=== PATIENT | female | born 1965 | race Caucasian/White ===

== ENCOUNTER → 2016-04-14 | Outpatient (CLI) | payer BC, OTHER ==
[~2016-04-14] MED LIST: /PANT40TA PO; ALDA25TA2 PO; LACT10SO29 PO; LASI20TA PO; MICR10CA PO; PHYT5TA PO; POTA10TA16 PO; POTA20TA PO; PROP10TA56 PO; PROP10TAB PO; RANI15TA PO; SPIR25TA2 PO; VITAMIN K PO; ZANT150T PO
--- NOTE | 2016-04-14 08:57 | REP ---
Right upper quadrant ultrasound: History: Cirrhosis. Findings: The gallbladder is normal in size with a thin wall. There is an 8 mm echogenic structure in the neck of the gallbladder which does not demonstrate acoustic shadowing. This may be a small stone or polyp. A stone was felt to be present in this location on prior sonography October 01, 2015. CT study from November 09, 2014 showed a calcified gallstone in the neck of the gallbladder. Liver texture is somewhat coarse as before. Common bile duct is normal measuring 0.5 cm in greatest diameter. There is a 0.7 cm cyst in the right lobe of the liver. No other focal liver lesion is seen. No pancreatic abnormality is observed. There is no evidence of ascites or right renal abnormality. The right kidney measures 11.1 x 4.7 x 4.1 cm. Impression: 1. Small cyst right lobe of the liver. 2. Coarse liver texture as before. 3. 8 mm stone (versus less likely polyp) in the neck of the gallbladder. Signed by Evangelista Joseph MD 04/14/2016 02:32 P
== END ==
LOC: M RAD 07:52
PROVIDERS: ATTEND Internal Medicine
DX: K76.89 Other specified diseases of liver (principal); K82.9 Disease of gallbladder, unspecified

== ENCOUNTER → 2016-12-11 | Outpatient (CLI) | payer OTHER, BC ==
[2016-12-11 12:03] LABS: BASO # 0.1 10^3/uL (0.0-0.2); BASO % 1.2 % (0.0-1.0); EOS # 0.1 10^3/uL (0.0-0.50); EOS % 1.9 % (0.0-3.0); IMMATURE GRANULOCYTE % 0.2 % (0-0); LYMPH # 1.3 10^3/uL (1.5-4.5); LYMPH % 28.9 % (24.0-44.0); MEAN CORPUSCULAR HEMOGLOBIN 25.8 pg (27.0-33.0); MEAN CORPUSCULAR HGB CONC 31.7 g/dl (32.0-36.5); MEAN CORPUSCULAR VOLUME 81.2 fl (80.0-96.0); MONO # 0.3 10^3/uL (0.0-0.8); MONO % 7.6 % (0.0-5.0); NEUTROPHILS # 2.6 10^3/uL (1.8-7.7); NEUTROPHILS % 60.2 % (36.0-66.0); PLATELET COUNT, AUTOMATED 178 10^3/uL (150-450); RED CELL DISTRIBUTION WIDTH 14.1 % (11.5-14.5); WHITE BLOOD COUNT 4.3 10^3/uL (4.0-10.0)
[2016-12-11 12:10] LABS: ADD MANUAL DIFFER NO; DIFF SLIDE NUMBER 198
[2016-12-11 12:11] LABS: INR 0.97
[2016-12-11 13:05] LABS: ALBUMIN 3.8 GM/DL (3.2-5.2); ALBUMIN/GLOBULIN RATIO 0.86 (1.00-1.93); ALKALINE PHOSPHATASE 82 U/L (45-117); ALT/SGPT 20 U/L (12-78); ANION GAP 8 MEQ/L (8-16); AST/SGOT 23 U/L (15-37); BILIRUBIN,DIRECT 0.2 MG/DL (0.0-0.2); BILIRUBIN,TOTAL 0.7 MG/DL (0.2-1.0); BLOOD UREA NITROGEN 7 MG/DL (7-18); CALCIUM LEVEL 9.3 MG/DL (8.5-10.1); CARBON DIOXIDE LEVEL 26 MEQ/L (21-32); CHLORIDE LEVEL 105 MEQ/L (98-107); CREATININE FOR GFR 0.96 MG/DL (0.55-1.02); GLOMERULAR FILTRATION RATE > 60.0 (>51); GLUCOSE, FASTING 83 MG/DL (70-105); POTASSIUM SERUM 4.5 MEQ/L (3.5-5.1); SODIUM LEVEL 139 MEQ/L (136-145); TOTAL PROTEIN 8.2 GM/DL (6.4-8.2)
== END ==
LOC: M WUC 10:40
PROVIDERS: ATTEND Internal Medicine
DX: K70.30 Alcoholic cirrhosis of liver without ascites (principal)

== ENCOUNTER → 2017-02-23 | Outpatient (CLI) | payer BC, OTHER ==
--- NOTE | 2017-02-23 11:48 | REP ---
RIGHT UPPER QUADRANT SONOGRAPHY: HISTORY: Cirrhosis. Comparison study April 14, 2016. TODAY'S SONOGRAPHIC FINDINGS: Scanning through right upper quadrant of the abdomen demonstrates a non-shadowing 5 mm focus near the neck of the gallbladder likely a polyp. No stone is seen. No pericholecystic fluid or gallbladder wall thickening seen. Common bile duct is normal measuring 0.3 cm in diameter. Coarse liver texture is again seen. There is a 0.8 cm cyst in the right lobe again noted. No focal liver mass lesion is seen otherwise. There is no evidence of ascites or right renal abnormality. The right kidney measures 11.8 x 5.3 x 3.6 cm. IMPRESSION: Coarse liver texture. One small hepatic cyst. Presumed 5 mm polyp in the neck of the gallbladder again noted. Signed by Evangelista Joseph MD 02/23/2017 02:24 P
== END ==
LOC: M LAB 08:06
PROVIDERS: ATTEND Internal Medicine
DX: K76.89 Other specified diseases of liver (principal); K82.4 Cholesterolosis of gallbladder

== ENCOUNTER 2017-05-29 06:16 | Emergency (ER) | payer BC, OTHER ==
[2017-05-29] MEDS: NS 1,000 ML IV (07:15)
[2017-05-29 08:24] LABS: BASO % 0.2 % (0.0-1.0); HEMATOCRIT 38.6 % (36.0-47.0); HEMOGLOBIN 11.9 g/dl (12.0-16.0); IMMATURE GRANULOCYTE % 0.6 % (0-3.0); LYMPH # 0.3 10^3/uL (1.5-4.5); MEAN CORPUSCULAR HEMOGLOBIN 24.2 pg (27.0-33.0); MEAN CORPUSCULAR HGB CONC 30.8 g/dl (32.0-36.5); MEAN CORPUSCULAR VOLUME 78.6 fl (80.0-96.0); MONO # 0.7 10^3/uL (0.0-0.8); MONO % 6.1 % (0.0-5.0); NEUTROPHILS # 9.6 10^3/uL (1.8-7.7); NEUTROPHILS % 90.7 % (36.0-66.0); RED BLOOD COUNT 4.91 10^6/uL (4.00-5.40); RED CELL DISTRIBUTION WIDTH 14.5 % (11.5-14.5); WHITE BLOOD COUNT 10.6 10^3/uL (4.0-10.0)
[2017-05-29] MEDS: MORPHINE 4 MG/ML 1ML VIAL (J2270) IV (08:28)
[2017-05-29] MEDS: ONDANSETRON 4MG/2ML VIAL (J2405) IV (08:28)
[2017-05-29 09:01] LABS: CONTROL LINE HCG INT CTR LINE PRESENT; HCG, SERUM QUALITATIVE NEGATIVE (NEGATIVE)
[2017-05-29 09:07] LABS: ALBUMIN 3.7 GM/DL (3.2-5.2); ALBUMIN/GLOBULIN RATIO 0.88 (1.00-1.93); ALKALINE PHOSPHATASE 194 U/L (45-117); ALT/SGPT 216 U/L (12-78); ANION GAP 10 MEQ/L (8-16); AST/SGOT 317 U/L (7-37); BILIRUBIN,TOTAL 3.7 MG/DL (0.2-1.0); BLOOD UREA NITROGEN 13 MG/DL (7-18); CALCIUM LEVEL 8.6 MG/DL (8.5-10.1); CARBON DIOXIDE LEVEL 24 MEQ/L (21-32); CHLORIDE LEVEL 106 MEQ/L (98-107); GLOMERULAR FILTRATION RATE > 60.0 (>51); GLUCOSE, FASTING 111 MG/DL (70-100); POTASSIUM SERUM 3.8 MEQ/L (3.5-5.1); SODIUM LEVEL 140 MEQ/L (136-145); TOTAL PROTEIN 7.9 GM/DL (6.4-8.2)
[2017-05-29 09:18] LABS: POSITIVE DIFF POS FLAG
[2017-05-29 09:19] LABS: POS COUNT POS FLAG
[2017-05-29 09:22] LABS: LYMPH % 2.4 % (24.0-44.0)
[2017-05-29 09:47] LABS: AMYLASE 4582 U/L (25-115)
[2017-05-29 09:57] LABS: LIPASE 33761 U/L (73-393)
== END 2017-05-29 16:00 | disposition short-term general hospital (02) ==
LOC: M ED 06:16
DX: R10.10 Upper abdominal pain, unspecified (principal); K74.60 Unspecified cirrhosis of liver; R11.2 Nausea with vomiting, unspecified; I10 Essential (primary) hypertension; K21.9 Gastro-esophageal reflux disease without esophagitis; B19.20 Unspecified viral hepatitis C without hepatic coma; Z87.19 Personal history of other diseases of the digestive system; Z87.891 Personal history of nicotine dependence; Z79.899 Other long term (current) drug therapy
CPT/HCPCS: J2270

== ENCOUNTER → 2018-05-09 | Outpatient (CLI) | payer BC, OTHER ==
[~2018-05-09] MED LIST changes: +PANT40TA3 PO; +SPIR-10 PO; -SPIR25TA2 PO
--- NOTE | 2018-05-09 20:24 | REP ---
Clinical: Cirrhosis. Comparison: 05/29/2017 Technique: Real time zuniga scale ultrasound examination using curved array transducer. Findings: Evidence of prior cholecystectomy. Common bile duct measures 8.3 mm diameter. The liver demonstrates heterogeneous echotexture consistent with cirrhosis and a recanalized umbilical vein is identified. Main portal vein measures 12.5 mm diameter on current examination. Right hepatic cyst measures 6.7 mm maximal diameter and appears stable. The pancreas is normal in appearance. 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 No ascites. Impression: 1. Continued evidence for cirrhosis. No focal hepatic lesion identified. Benign stable hepatic cyst measuring 6.7 mm. 2. Right kidney with suggestions for duplicated collecting system including pelviectasis of the the lower pole moiety. Electronically Signed by Stanley Hansen MD 05/09/2018 08:15 P
== END ==
LOC: M RAD 08:54
PROVIDERS: ATTEND Internal Medicine
DX: K70.30 Alcoholic cirrhosis of liver without ascites (principal); K76.89 Other specified diseases of liver

== ENCOUNTER → 2018-05-09 | Outpatient (CLI) | payer BC, OTHER | LOC: M LAB 09:41 | PROVIDERS: ATTEND Internal Medicine | DX: K70.30 Alcoholic cirrhosis of liver without ascites (principal) ==

== ENCOUNTER → 2018-11-18 | Outpatient (CLI) | payer BC, OTHER ==
[~2018-11-18] MED LIST changes: -/PANT40TA PO; +PROT1TAB2 PO
[2018-11-18 10:34] LABS: HEMATOCRIT 34.8 % (36.0-47.0); HEMOGLOBIN 9.8 g/dl (12.0-15.5); MEAN CORPUSCULAR HEMOGLOBIN 20.6 pg (27.0-33.0); MEAN CORPUSCULAR HGB CONC 28.2 g/dl (32.0-36.5); MEAN CORPUSCULAR VOLUME 73.3 fl (80.0-96.0); PLATELET COUNT, AUTOMATED 175 10^3/uL (150-450); RED BLOOD COUNT 4.75 10^6/uL (4.00-5.40); WHITE BLOOD COUNT 4.2 10^3/uL (4.0-10.0)
[2018-11-18 10:44] LABS: PROTHROMBIN TIME 12.9 SECONDS (11.8-14.0)
[2018-11-18 10:45] LABS: PARTIAL THROMBOPLASTIN TIME 30.2 SECONDS (25.0-38.4)
[2018-11-18 11:10] LABS: BILIRUBIN,DIRECT 0.1 MG/DL (0.0-0.2); BILIRUBIN,TOTAL 0.4 MG/DL (0.2-1.0); CALCIUM LEVEL 9.5 MG/DL (8.5-10.1); CREATININE FOR GFR 1.06 MG/DL (0.55-1.30); GLOMERULAR FILTRATION RATE 57.5 (>51); POTASSIUM SERUM 4.2 MEQ/L (3.5-5.1); TOTAL PROTEIN 8.2 GM/DL (6.4-8.2)
== END ==
LOC: M LAB 10:00
PROVIDERS: ATTEND Physician Assistant Surgical
DX: K70.30 Alcoholic cirrhosis of liver without ascites (principal); K76.6 Portal hypertension; I85.00 Esophageal varices without bleeding

== ENCOUNTER → 2018-12-08 | Outpatient (CLI) | payer BC, OTHER ==
--- NOTE | 2018-12-08 11:23 | REP ---
REASON: Cirrhosis. COMPARISON: 05/09/2018. Once again, the patient is status post cholecystectomy. There is a micronodular surface to the hepatic edge essentially unchanged from the prior exam. There is common bile duct dilatation today measuring 8 mm, previously 3.2 mm. There is no evidence of intrahepatic ductal dilatation. Once again, there is evidence of recannulation of the umbilical vein status quo. There is a tiny 7 mm sized hepatic cyst status quo. The imaged portion of the pancreas is within normal limits. The imaged portion of the right kidney is unchanged from the prior exam. IMPRESSION: 1. Evidence of hepatic cirrhosis status quo with findings as described above. 2. Evidence of common bile duct dilatation representing a change from the prior exam. 3. Other findings as described above. Electronically Signed by Vicente Smith DO 12/08/2018 02:34 P
== END ==
LOC: M RAD 07:38
PROVIDERS: ATTEND Internal Medicine
DX: K70.30 Alcoholic cirrhosis of liver without ascites (principal)

== ENCOUNTER → 2018-12-22 | Outpatient (CLI) | payer BC, OTHER ==
[~2018-12-22] MED LIST changes: +E-Z-PAQUE 96% w/w SUSP 176GM BTL As Ordered ONE
--- NOTE | 2018-12-22 18:28 | REP ---
Examination Requested: SBFT Reason For Exam: Anemia Small Bowel Follow Through The procedure was performed by RIMA Galdamez, under the direct supervision of Dr. Joseph. The images were reviewed with Dr. Joseph. The staff counselor film shows no organomegaly or pathological masses. The intestinal gas pattern appears normal. The barium was administered and the barium column was followed through the small bowel to the level of the terminal ileum. Small bowel transit time was approximately 140 minutes. During fluoroscopy gentle palpation shows all loops are freely mobile and pliable. There are no fixed or angulated loops. There is a diverticulum of the descending duodenum measuring approximately 2 cm. The small bowel mucosal pattern is normal in course and caliber. There is no transition to suggest a partial small-bowel obstruction. Spot filming of the terminal ileum shows it to be unremarkable. Impression: 1. Descending duodenal diverticulum as described above, otherwise unremarkable small bowel follow-through 0.3 minutes of fluoroscopy time was utilized for this procedure. Some fluoroscopic images are performed with last image hold technology. These images require no additional radiation. Reviewed by RIMA Hui 12/22/2018 04:30 P Electronically Signed by Evangelista Joseph MD 12/22/2018 06:17 P
== END ==
LOC: M RAD 07:59
PROVIDERS: ATTEND Internal Medicine
DX: K57.10 Diverticulosis of small intestine without perforation or abscess without bleeding (principal); D50.9 Iron deficiency anemia, unspecified

== ENCOUNTER → 2019-02-10 | Outpatient (REF) | payer OTHER ==
[~2019-02-10] MED LIST changes: -E-Z-PAQUE 96% w/w SUSP 176GM BTL As Ordered ONE
== END ==
LOC: M LAB REF 16:19
PROVIDERS: ATTEND Registered Nurse
DX: D64.9 Anemia, unspecified (principal)

== ENCOUNTER → 2019-04-21 | Outpatient (CLI) | payer BC, OTHER ==
[2019-04-21 11:28] LABS: HEMATOCRIT 41.2 % (36.0-47.0); HEMOGLOBIN 13.3 g/dl (12.0-15.5); MEAN CORPUSCULAR HEMOGLOBIN 28.2 pg (27.0-33.0); MEAN CORPUSCULAR HGB CONC 32.3 g/dl (32.0-36.5); MEAN CORPUSCULAR VOLUME 87.3 fl (80.0-96.0); PLATELET COUNT, AUTOMATED 185 10^3/uL (150-450); RED BLOOD COUNT 4.72 10^6/uL (4.00-5.40); WHITE BLOOD COUNT 4.5 10^3/uL (4.0-10.0)
[2019-04-21 11:46] LABS: INR 1.13; PROTHROMBIN TIME 14.3 SECONDS (11.8-14.0)
[2019-04-21 11:47] LABS: PARTIAL THROMBOPLASTIN TIME 31.3 SECONDS (25.0-38.4)
[2019-04-21 11:57] LABS: ALT/SGPT 24 U/L (12-78); BILIRUBIN,DIRECT 0.2 MG/DL (0.0-0.2); BILIRUBIN,TOTAL 0.7 MG/DL (0.2-1.0); BLOOD UREA NITROGEN 10 MG/DL (7-18); CALCIUM LEVEL 8.9 MG/DL (8.5-10.1); CARBON DIOXIDE LEVEL 28 MEQ/L (21-32); CHLORIDE LEVEL 104 MEQ/L (98-107); FERRITIN 34 NG/ML (8-252); GLOMERULAR FILTRATION RATE > 60.0 (>51); GLUCOSE, FASTING 74 MG/DL (70-100); IRON (FE) 177 UG/DL (50-170); PERCENT SATURATION 56.7 % (13.2-45.0); SODIUM LEVEL 140 MEQ/L (136-145); TOTAL IRON BINDING CAPACITY 312 UG/DL (250-450); TOTAL PROTEIN 7.8 GM/DL (6.4-8.2)
== END ==
LOC: M LAB 09:54
PROVIDERS: ATTEND Physician Assistant Surgical
DX: K70.30 Alcoholic cirrhosis of liver without ascites (principal); D64.9 Anemia, unspecified

== ENCOUNTER → 2019-05-05 | Outpatient (CLI) | payer BC, OTHER ==
--- NOTE | 2019-05-05 09:34 | REP ---
Abdominal right upper quadrant ultrasound in patient with known cirrhosis: Comparison is 12/08/2018. The the gallbladder is surgically absent. There is no intrahepatic or extrahepatic biliary duct dilatation. The common biliary duct measures 4.4 mm in diameter. The hepatic echotexture is diffusely coarsened compatible with cirrhosis. There are no hepatic masses. No hepatic cysts are identified on the study today. The main portal vein measures 14 mm in diameter, slightly dilated. The flow in the portal vein is patent O P fill, toward the liver. On the prior study. The umbilical vein was recanalized. This is not identified on the study today, however, this study today is limited because of bowel gas obscuration. The pancreas is obscured by bowel gas. The right kidney is normal size measuring 10.2 x 3.9 x 3.9 cm. There is cortical thinning. There is a 5 mm round echogenic focus in the upper pole, hyperdense cyst versus solid nodule. There is no right upper quadrant ascites. Impression: Diffusely coarsened hepatic echotexture compatible with cirrhosis. There are no hepatic masses. No hepatic cysts are identified on the study today. The main portal vein is mildly dilated. The flow in the portal vein is toward the liver. Previously the umbilical vein was recanalized. This is not appreciated today, however, the study is limited because of bowel gas obscuration. There is a 5 mm echogenic focus in the right renal upper pole, hyperdense cyst versus solid nodule versus calculus. The pancreas is obscured by bowel gas. The gallbladder is surgically absent. There is no biliary duct dilatation. There is no ascites. Electronically Signed by Abdullahi Tate MD 05/05/2019 09:26 A
== END ==
LOC: M RAD 07:56
PROVIDERS: ATTEND Physician Assistant Surgical
DX: K70.30 Alcoholic cirrhosis of liver without ascites (principal); N28.89 Other specified disorders of kidney and ureter

== ENCOUNTER → 2019-05-17 | Outpatient (CLI) | payer BC, OTHER ==
--- NOTE | 2019-05-17 11:44 | REPMRS ---
Patient History The patient states she has not had a clinical breast exam in over a year. No known family history of cancer. Digital Woman Screen Mammo: May 17, 2019 - Exam #: [id number] Bilateral CC and MLO view(s) were taken. Technologist: Mili Gaspar, Technologist Prior study comparison: November 15, 2014, bilateral digital woman screen mammo, performed at [facility]. September 22, 2013, bilateral digital woman screen mammo, performed at [facility]. September 16, 2012, bilateral digital woman screen mammo, performed at [facility]. FINDINGS: The breast tissue is heterogeneously dense. This may lower the sensitivity of mammography. There are four nodular opacities in the left mid breast two laterally and two medially. These merit further evaluation as the do not appear to have been present previously. They may be breast cysts. There are nodular opacities on the prior studies which have regressed. There is a moderate amount of heterogeneously dense fibroglandular tissue which is fairly symmetric. There is no other interval development of dominant mass, architectural distortion, or grouped microcalcification typical of malignancy. There has been no other change in the appearance of the mammogram from the prior studies. 3-D tomosynthesis shows no additional findings. Assessment: BI-RADS/ACR category 0 mammogram, Incomplete: Need additional imaging evaluation and/or prior mammograms for comparison. Recommendation Ultrasound and special view mammogram of the left breast. This patient's Lifetime Breast Cancer RIsk is estimated at 10.9 %. This mammogram was interpreted with the aid of an FDA-approved computer-aided dectection system. Electronically Signed By: Syed Joseph MD 05/17/19 [id number]
== END ==
LOC: M WHC 09:27
PROVIDERS: ATTEND Nurse Practitioner Women's Health
DX: Z12.31 Encounter for screening mammogram for malignant neoplasm of breast (principal)

== ENCOUNTER → 2019-05-17 | Outpatient (REF) | payer OTHER | LOC: M SFHCWAGY 13:42 | PROVIDERS: ATTEND Nurse Practitioner Women's Health | DX: Z12.4 Encounter for screening for malignant neoplasm of cervix (principal); R87.619 Unspecified abnormal cytological findings in specimens from cervix uteri | CPT/HCPCS: 87624; G0123 ==

== ENCOUNTER → 2019-06-22 | Outpatient (REF) | payer OTHER | LOC: M LAB REF 12:19 | PROVIDERS: ATTEND Registered Nurse | DX: N39.0 Urinary tract infection, site not specified (principal) ==

== ENCOUNTER → 2019-08-11 | Outpatient (REF) | payer OTHER ==
[~2019-08-11] MED LIST changes: -LACT10SO29 PO; +LACT20EL PO
== END ==
LOC: M LAB REF 17:16
PROVIDERS: ATTEND Registered Nurse
DX: D64.9 Anemia, unspecified (principal)

== ENCOUNTER → 2019-11-06 | Outpatient (CLI) | payer BC, OTHER ==
[~2019-11-06] MED LIST changes: +PANT40TA29 PO; -PANT40TA3 PO
--- NOTE | 2019-12-04 08:01 | REP ---
LIVER ULTRASOUND CLINICAL: Cirrhosis. TECHNIQUE: Real-time zuniga scale and color Doppler evaluation using curved array transducer. FINDINGS: Liver again demonstrates coarsened echotexture consistent with cirrhosis. No focal hepatic mass lesion is identified. No obvious patent umbilical vein noted. The pancreas is incompletely evaluated due to interposed bowel gas. Evidence for prior cholecystectomy. No biliary ductal dilatation is appreciated and the common bile duct measures 3.9 mm in diameter. The right kidney measures 11.1 x 4.5 x 4.3 cm without hydronephrosis and demonstrates increased central sinus fat consistent with chronic medical renal disease. No ascites in the visualized right upper quadrant. IMPRESSION: Continued evidence for cirrhosis. No obvious focal hepatic lesion identified. MTDD
== END ==
LOC: M RAD 09:02
PROVIDERS: ATTEND Physician Assistant Surgical
DX: K70.30 Alcoholic cirrhosis of liver without ascites (principal)

== ENCOUNTER → 2020-04-05 | Outpatient (CLI) | payer BC, OTHER ==
[2020-04-05 08:22] LABS: HEMATOCRIT 45.9 % (36.0-47.0); HEMOGLOBIN 14.5 g/dl (12.0-15.5); MEAN CORPUSCULAR HEMOGLOBIN 28.2 pg (27.0-33.0); MEAN CORPUSCULAR HGB CONC 31.6 g/dl (32.0-36.5); MEAN CORPUSCULAR VOLUME 89.3 fl (80.0-96.0); PLATELET COUNT, AUTOMATED 154 10^3/uL (150-450); RED BLOOD COUNT 5.14 10^6/uL (4.00-5.40); WHITE BLOOD COUNT 4.1 10^3/uL (4.0-10.0)
[2020-04-05 08:43] LABS: INR 1.05; PARTIAL THROMBOPLASTIN TIME 31.4 SECONDS (24.2-38.5); PROTHROMBIN TIME 13.9 SECONDS (12.5-14.3)
--- NOTE | 2020-04-05 08:43 | REP ---
INDICATION: CIRRHOSIS- LABS FIRST COMPARISON: 11/06/2019 TECHNIQUE: Real time zuniga scale ultrasound examination using curved array transducer. FINDINGS: Liver measures approximately 16 cm in craniocaudal length and demonstrates coarsened echotexture suggesting hepatocellular disease. No focal hepatic lesion identified. Pancreas is normal. Evidence for prior cholecystectomy. Common bile duct measures 4 mm diameter. The right kidney measures 10.3 x 4.9 x 3.4 cm with suggestion for partial duplication but no hydronephrosis. No ascites IMPRESSION: Hepatocellular disease consistent with cirrhosis. No focal hepatic lesion. <Electronically signed by Stanley Hansen > 04/05/20 [id number]
[2020-04-05 08:53] LABS: BLOOD UREA NITROGEN 7 MG/DL (7-18); CALCIUM LEVEL 9.2 MG/DL (8.5-10.1); CARBON DIOXIDE LEVEL 29 MEQ/L (21-32); CHLORIDE LEVEL 105 MEQ/L (98-107); CREATININE FOR GFR 0.95 MG/DL (0.55-1.30); GLOMERULAR FILTRATION RATE > 60.0 (>51); GLUCOSE, FASTING 89 MG/DL (70-100); POTASSIUM SERUM 4.2 MEQ/L (3.5-5.1); SODIUM LEVEL 142 MEQ/L (136-145)
[2020-04-08 14:10] LABS: ALT/SGPT 25 U/L (12-78); BILIRUBIN,DIRECT 0.2 MG/DL (0.0-0.2); BILIRUBIN,TOTAL 0.7 MG/DL (0.2-1.0); TOTAL PROTEIN 7.9 GM/DL (6.4-8.2)
== END ==
LOC: M RAD 07:43
PROVIDERS: ATTEND Physician Assistant Surgical
DX: K70.30 Alcoholic cirrhosis of liver without ascites (principal); D64.9 Anemia, unspecified; I85.00 Esophageal varices without bleeding; K21.9 Gastro-esophageal reflux disease without esophagitis

== ENCOUNTER → 2020-10-28 | Outpatient (CLI) | payer BC, OTHER ==
[2020-10-28 09:34] LABS: HEMATOCRIT 44.3 % (36.0-47.0); HEMOGLOBIN 14.6 g/dl (12.0-15.5); MEAN CORPUSCULAR HEMOGLOBIN 28.4 pg (27.0-33.0); MEAN CORPUSCULAR VOLUME 86.2 fl (80.0-96.0); PLATELET COUNT, AUTOMATED 154 10^3/uL (150-450); RED BLOOD COUNT 5.14 10^6/uL (4.00-5.40); WHITE BLOOD COUNT 4.2 10^3/uL (4.0-10.0)
[2020-10-28 09:48] LABS: INR 1.05; PARTIAL THROMBOPLASTIN TIME 29.4 SECONDS (25.9-37.0); PROTHROMBIN TIME 14.1 SECONDS (12.7-14.5)
--- NOTE | 2020-10-28 09:49 | REP ---
INDICATION: CIRRHOSIS *LABS 1ST, US 2ND* COMPARISON: None. TECHNIQUE: Real time zuniga scale ultrasound examination using curved array transducer. FINDINGS: Liver demonstrates mild coarsened echotexture without focal hepatic lesion identified and no evidence for cardiomegaly. Pancreas is incompletely evaluated due to interposed bowel gas. The gallbladder is surgically absent. No biliary ductal dilatation is appreciated and the common bile duct measures 3.7 mm diameter. Right kidney is normal in reniform shape without hydronephrosis and measures 10.7 x 5.6 x 4.3 cm with possible 2.0 cm midpole cyst not visualized on prior examination. No ascites in the visualized right upper quadrant. IMPRESSION: Coarsened hepatic echotexture without focal hepatic lesion. Possible 2 cm right renal cyst. Consider pre and postcontrast CT of the abdomen for further investigation. <Electronically signed by Stanley Hansen > 10/28/20 [id number]
[2020-10-28 09:56] LABS: ALBUMIN 3.9 GM/DL (3.2-5.2); ALT/SGPT 31 U/L (12-78); BILIRUBIN,DIRECT 0.2 MG/DL (0.0-0.2); BILIRUBIN,TOTAL 0.7 MG/DL (0.2-1.0); BLOOD UREA NITROGEN 9 MG/DL (7-18); CALCIUM LEVEL 9.5 MG/DL (8.5-10.1); CARBON DIOXIDE LEVEL 26 MEQ/L (21-32); CHLORIDE LEVEL 108 MEQ/L (98-107); CREATININE FOR GFR 0.96 MG/DL (0.55-1.30); GLOMERULAR FILTRATION RATE > 60.0 (>51); GLUCOSE, FASTING 87 MG/DL (70-100); POTASSIUM SERUM 4.6 MEQ/L (3.5-5.1); SODIUM LEVEL 140 MEQ/L (136-145); TOTAL PROTEIN 8.1 GM/DL (6.4-8.2)
== END ==
LOC: M RAD 08:44
PROVIDERS: ATTEND Physician Assistant Surgical
DX: K70.30 Alcoholic cirrhosis of liver without ascites (principal); I85.00 Esophageal varices without bleeding; K21.9 Gastro-esophageal reflux disease without esophagitis

== ENCOUNTER → 2021-04-14 | Outpatient (CLI) | payer BC, OTHER ==
[~2021-04-14] MED LIST changes: +POTA-149 PO; -POTA10TA16 PO
[2021-04-14 09:04] LABS: HEMATOCRIT 40.5 % (36.0-47.0); HEMOGLOBIN 13.1 g/dl (12.0-15.5); MEAN CORPUSCULAR HEMOGLOBIN 27.8 pg (27.0-33.0); MEAN CORPUSCULAR HGB CONC 32.3 g/dl (32.0-36.5); PLATELET COUNT, AUTOMATED 123 10^3/uL (150-450); RED BLOOD COUNT 4.71 10^6/uL (4.00-5.40); WHITE BLOOD COUNT 2.9 10^3/uL (4.0-10.0)
[2021-04-14 09:17] LABS: INR 1.08; PROTHROMBIN TIME 14.4 SECONDS (12.7-14.5)
[2021-04-14 09:18] LABS: PARTIAL THROMBOPLASTIN TIME 30.9 SECONDS (25.9-37.0)
[2021-04-14 09:33] LABS: ALBUMIN 3.5 GM/DL (3.2-5.2); ALT/SGPT 20 U/L (12-78); BILIRUBIN,DIRECT 0.2 MG/DL (0.0-0.2); BILIRUBIN,TOTAL 0.6 MG/DL (0.2-1.0); BLOOD UREA NITROGEN 12 MG/DL (7-18); CALCIUM LEVEL 8.8 MG/DL (8.5-10.1); CARBON DIOXIDE LEVEL 30 MEQ/L (21-32); CHLORIDE LEVEL 110 MEQ/L (98-107); GLOMERULAR FILTRATION RATE > 60.0 (>51); GLUCOSE, FASTING 76 MG/DL (70-100); POTASSIUM SERUM 3.1 MEQ/L (3.5-5.1); SODIUM LEVEL 145 MEQ/L (136-145); TOTAL PROTEIN 7.3 GM/DL (6.4-8.2)
== END ==
LOC: M RAD 07:58
PROVIDERS: ATTEND Physician Assistant Surgical
DX: K21.9 Gastro-esophageal reflux disease without esophagitis (principal); K70.30 Alcoholic cirrhosis of liver without ascites; I95.0 Idiopathic hypotension

== ENCOUNTER → 2021-10-16 | Outpatient (CLI) | payer BC, OTHER ==
[2021-10-16 09:06] LABS: HEMATOCRIT 47.5 % (36.0-47.0); HEMOGLOBIN 15.7 g/dl (12.0-15.5); MEAN CORPUSCULAR HEMOGLOBIN 28.6 pg (27.0-33.0); MEAN CORPUSCULAR HGB CONC 33.1 g/dl (32.0-36.5); MEAN CORPUSCULAR VOLUME 86.7 fl (80.0-96.0); PLATELET COUNT, AUTOMATED 195 10^3/uL (150-450); RED BLOOD COUNT 5.48 10^6/uL (4.00-5.40); WHITE BLOOD COUNT 3.8 10^3/uL (4.0-10.0)
[2021-10-16 09:28] LABS: INR 0.93; PROTHROMBIN TIME 12.9 SECONDS (12.7-14.5)
[2021-10-16 09:29] LABS: PARTIAL THROMBOPLASTIN TIME 30.6 SECONDS (25.9-37.0)
[2021-10-16 09:51] LABS: ALBUMIN 4.4 GM/DL (3.2-5.2); BILIRUBIN,DIRECT 0.2 MG/DL (0.0-0.2); BILIRUBIN,TOTAL 0.8 MG/DL (0.2-1.0); CALCIUM LEVEL 9.8 MG/DL (8.5-10.1); CREATININE FOR GFR 1.06 MG/DL (0.55-1.30); GLOMERULAR FILTRATION RATE 56.9 (>51); TOTAL PROTEIN 8.8 GM/DL (6.4-8.2)
== END ==
LOC: M RAD 08:09
PROVIDERS: ATTEND Physician Assistant Surgical
DX: K70.30 Alcoholic cirrhosis of liver without ascites (principal); I85.00 Esophageal varices without bleeding

== ENCOUNTER → 2022-04-30 | Outpatient (CLI) | payer BC, OTHER | LOC: M WHC 08:54 | PROVIDERS: ATTEND Physician Assistant Surgical | DX: I85.00 Esophageal varices without bleeding (principal); K70.30 Alcoholic cirrhosis of liver without ascites ==

== ENCOUNTER → 2022-05-05 | Outpatient (CLI) | payer BC, OTHER ==
[2022-05-05 09:36] LABS: HEMOGLOBIN 11.7 g/dl (12.0-15.5); MEAN CORPUSCULAR HEMOGLOBIN 28.5 pg (27.0-33.0); MEAN CORPUSCULAR HGB CONC 32.5 g/dl (32.0-36.5); MEAN CORPUSCULAR VOLUME 87.6 fl (80.0-96.0); PLATELET COUNT, AUTOMATED 144 10^3/uL (150-450); RED BLOOD COUNT 4.11 10^6/uL (4.00-5.40)
[2022-05-05 09:47] LABS: INR 1.01; PROTHROMBIN TIME 13.5 SECONDS (12.5-14.5)
[2022-05-05 09:48] LABS: PARTIAL THROMBOPLASTIN TIME 28.7 SECONDS (24.8-34.2)
[2022-05-05 10:04] LABS: ALBUMIN 3.9 G/DL (3.2-5.2); ALKALINE PHOSPHATASE 124 U/L (46-116); ALT/SGPT 47 U/L (7.0-40); AST/SGOT 62 U/L (<34); BILIRUBIN,DIRECT 0.5 MG/DL (<0.4); BILIRUBIN,TOTAL 1.2 MG/DL (0.3-1.2); BLOOD UREA NITROGEN 8 MG/DL (9-23); CALCIUM LEVEL 8.8 MG/DL (8.5-10.1); CARBON DIOXIDE LEVEL 28 MMOL/L (20-31); CHLORIDE LEVEL 104 MMOL/L (98-107); GLOMERULAR FILTRATION RATE > 60.0 (>51); GLUCOSE, FASTING 83 MG/DL (60-100); POTASSIUM SERUM 3.9 MMOL/L (3.5-5.1); SODIUM LEVEL 138 MMOL/L (136-145); TOTAL PROTEIN 7.5 G/DL (5.7-8.2)
== END ==
LOC: M LAB 08:42
PROVIDERS: ATTEND Physician Assistant Surgical
DX: K70.30 Alcoholic cirrhosis of liver without ascites (principal); I85.00 Esophageal varices without bleeding; K21.9 Gastro-esophageal reflux disease without esophagitis

== ENCOUNTER → 2022-10-07 | Outpatient (CLI) | payer BC, OTHER ==
[2022-10-07 10:51] LABS: HEMATOCRIT 44.6 % (36.0-47.0); HEMOGLOBIN 14.4 g/dl (12.0-15.5); MEAN CORPUSCULAR HEMOGLOBIN 28.5 pg (27.0-33.0); MEAN CORPUSCULAR HGB CONC 32.3 g/dl (32.0-36.5); MEAN CORPUSCULAR VOLUME 88.1 fl (80.0-96.0); PLATELET COUNT, AUTOMATED 173 10^3/uL (150-450); RED BLOOD COUNT 5.06 10^6/uL (4.00-5.40); WHITE BLOOD COUNT 3.4 10^3/uL (4.0-10.0)
[2022-10-07 10:57] LABS: INR 0.97; PROTHROMBIN TIME 13.1 SECONDS (12.5-14.5)
[2022-10-07 10:58] LABS: PARTIAL THROMBOPLASTIN TIME 28.9 SECONDS (24.8-34.2)
[2022-10-07 11:23] LABS: ALBUMIN 4.2 G/DL (3.2-5.2); ALKALINE PHOSPHATASE 95 U/L (46-116); ALT/SGPT 23 U/L (7.0-40); AST/SGOT 39 U/L (<34); BILIRUBIN,DIRECT 0.3 MG/DL (<0.4); BILIRUBIN,TOTAL 1.2 MG/DL (0.3-1.2); BLOOD UREA NITROGEN 9 MG/DL (9-23); CALCIUM LEVEL 9.5 MG/DL (8.5-10.1); CARBON DIOXIDE LEVEL 27 MMOL/L (20-31); CHLORIDE LEVEL 106 MMOL/L (98-107); CREATININE FOR GFR 0.82 MG/DL (0.55-1.30); GLOMERULAR FILTRATION RATE > 60.0 (>51); GLUCOSE, FASTING 82 MG/DL (60-100); POTASSIUM SERUM 4.6 MMOL/L (3.5-5.1); SODIUM LEVEL 141 MMOL/L (136-145); TOTAL PROTEIN 7.8 G/DL (5.7-8.2)
== END ==
LOC: M LAB 10:06
PROVIDERS: ATTEND Physician Assistant Surgical
DX: K70.30 Alcoholic cirrhosis of liver without ascites (principal); I85.00 Esophageal varices without bleeding

== ENCOUNTER → 2023-04-12 | Outpatient (CLI) | payer BC, OTHER ==
[~2023-04-12] MED LIST changes: +MEPH5TAB6 PO; -PHYT5TA PO
== END ==
LOC: M WHC 09:05
PROVIDERS: ATTEND Physician Assistant Surgical
DX: K70.30 Alcoholic cirrhosis of liver without ascites (principal)

== ENCOUNTER → 2023-04-21 | Outpatient (REF) | payer BC, OTHER ==
[2023-04-21 12:34] LABS: INR 1.04; PROTHROMBIN TIME 13.3 SECONDS (12.5-14.5)
== END ==
LOC: M LAB REF 11:25
PROVIDERS: ATTEND Internal Medicine
DX: K70.30 Alcoholic cirrhosis of liver without ascites (principal)

== ENCOUNTER → 2023-11-29 | Outpatient (CLI) | payer BC | LOC: M WHC 08:55 | PROVIDERS: ATTEND Physician Assistant Surgical | DX: K70.30 Alcoholic cirrhosis of liver without ascites (principal); K76.0 Fatty (change of) liver, not elsewhere classified; Z90.49 Acquired absence of other specified parts of digestive tract ==

== ENCOUNTER → 2024-05-17 | Outpatient (CLI) | payer BC | LOC: M WHC 09:31 | PROVIDERS: ATTEND Internal Medicine | DX: K70.30 Alcoholic cirrhosis of liver without ascites (principal) ==

== ENCOUNTER → 2024-05-26 | Outpatient (REF) | payer BC, OTHER | LOC: M LAB REF 11:50 | PROVIDERS: ATTEND Nurse Practitioner Family | DX: K70.30 Alcoholic cirrhosis of liver without ascites (principal) ==

== ENCOUNTER → 2024-11-07 | Outpatient (CLI) | payer BC ==
[2024-11-07 09:38] LABS: PLATELET COUNT, AUTOMATED 172 10^3/uL (150-450)
[2024-11-07 09:56] LABS: INR 0.95
[2024-11-07 10:00] LABS: ALT/SGPT 22.0 U/L (7.0-40); AST/SGOT 35.0 U/L (<34); CREATININE FOR GFR 0.92 MG/DL (0.55-1.30); GLOMERULAR FILTRATION RATE 71.3 (>45)
== END ==
LOC: M RAD 08:19
PROVIDERS: ATTEND Internal Medicine
DX: K70.30 Alcoholic cirrhosis of liver without ascites (principal); Z90.49 Acquired absence of other specified parts of digestive tract